=== PATIENT | male | born 1975 | race Caucasian/White ===

== ENCOUNTER 2018-01-31 21:26 | Inpatient (IN) | payer OTHER, MEDICARE ==
[~2018-01-31] VITALS: Ht 172.7 cm; Wt 59.1 kg
[~2018-01-31 21:26] MED LIST: ALBU8I INH; AZIT250T74 PO; PRED5TAB PO
[2018-01-31 21:33] VITALS: BP 118/84; PULSE 130; RESP 28; TEMP 98.5; O2SAT 90
[2018-01-31] MEDS ORDERED: SODIUM CHLORIDE 0.9% FLUSH 10 ML FLUSH IVF PRN (21:45)
[2018-01-31] MEDS ORDERED: SODIUM CHLOR 0.9% 1000 ML INJ 1,000 ML IV ONE ×2 (21:45→22:30)
--- NOTE | 2018-01-31 21:51 | PD ---
HPI Chief Complaint: Respiratory Symptoms Time Seen by Provider: 21:33 Travel History International Travel<30 days: No Contact w/Intl Traveler<30days: No Traveled to known affect area: No History of Present Illness HPI Patient is a 42-year-old male who presents the emergency room with complaints of shortness of breath. Patient reports that for the past 2 days, he has been having a nonproductive cough, reports that he has been wheezing. Patient reports that symptoms were exacerbated tonight, he decided to call ems for help. EMS reports that patient was hypoxic and tachypneic on initial evaluation , patient was given Solu-Medrol 125 mg IM as well as 3 neb treatments prior to arrival to the emergency room. His initial pulse ox was 80% on room air by EMS. Patient reports that he is a smoker, reports that he has not smoked in the past 2 days due to the shortness of breath. Patient denies any fevers or chills , denies any history of pulmonary embolism or DVT. Reports no sick contacts. PFSH Past Medical History Cerebral Palsy: Yes Diabetes: No Diminished Hearing: No Tetanus Vaccination: < 5 Years Influenza Vaccination: Yes Past Surgical History Other Surgery: Yes (BUNION SURGERY) Social History Alcohol Use: No Tobacco Use: Yes (1 ppd) Substance Use: No Allergies-Medications (Allergen,Severity, Reaction): Coded Allergies: No Known Allergies (Verified Allergy, Unknown, 01/31/18) Uncoded Allergies: NICKEL (Allergy, Intermediate, BLISTERS/HIVES, 01/04/16) Reported Meds & Prescriptions Reported Meds & Active Scripts Active No Active Prescriptions or Reported Medications Review of Systems General / Constitutional: No: Fever, Chills Eyes: No: Visual changes HENT: No: Headaches Cardiovascular: No: Chest Pain or Discomfort Respiratory: Positive: Cough, Shortness of Breath, Wheezing Gastrointestinal: No: Abdominal Pain Genitourinary: No: Dysuria Musculoskeletal: No: Pain Skin: No Rash Neurologic: No: Weakness Psychiatric: No: Depression Endocrine: No: Polydipsia Hematologic/Lymphatic: No: Easy Bruising Physical Exam Narrative GENERAL: Moderate distress SKIN: Focused skin assessment warm/dry. HEAD: Atraumatic. Normocephalic. EYES: Pupils equal and round. No scleral icterus. No injection or drainage. ENT: No nasal bleeding or discharge. Mucous membranes pink and moist. NECK: Trachea midline. No JVD. CARDIOVASCULAR: Tachycardic. No murmur appreciated. RESPIRATORY: Positive accessory muscle use. Scattered wheezing diffusely GASTROINTESTINAL: Abdomen soft, non-tender, nondistended. Hepatic and splenic margins not palpable. MUSCULOSKELETAL: No obvious deformities. No clubbing. No cyanosis. No edema. NEUROLOGICAL: Awake and alert. No obvious cranial nerve deficits. Motor grossly within normal limits. Normal speech. PSYCHIATRIC: Appropriate mood and affect; insight and judgment normal. Data Data Last Documented VS Vital Signs Date Time Temp Pulse Resp B/P (MAP) Pulse Ox O2 Delivery O2 Flow Rate FiO2 01/31/18 22:18 94 Nasal Cannula 4.00 01/31/18 21:33 98.5 130 28 118/84 (95) Orders Orders Complete Blood Count With Diff (01/31/18 21:38) Basic Metabolic Panel (Bmp) (01/31/18 21:38) B-Type Natriuretic Peptide (01/31/18 21:38) D-Dimer (01/31/18 21:38) Act Partial Throm Time (Ptt) (01/31/18 21:38) Prothrombin Time / Inr (Pt) (01/31/18 21:38) Magnesium (Mg) (01/31/18 21:38) Arterial Blood Gas (Abg) (01/31/18 21:38) Influenzae A/B Antigen (01/31/18 21:38) Iv Access Insert/Monitor (01/31/18 21:38) Electrocardiogram (01/31/18 21:38) Ecg Monitoring (01/31/18 21:38) Oximetry (01/31/18 21:38) Chest, Pa & Lat (01/31/18 21:38) Sodium Chloride 0.9% Flush (Ns Flush) (01/31/18 21:45) Albuterol-Ipratropium Neb (Duoneb Neb) (01/31/18 21:45) Sodium Chlor 0.9% 1000 Ml Inj (Ns 1000 M (01/31/18 21:45) Blood Culture (01/31/18 21:38) Lactic Acid Sepsis Protocol (01/31/18 21:40) Magnesium Sulfate 1 Gm Premix (Magnesium (01/31/18 22:00) Azithromycin Inj (Zithromax Inj) (01/31/18 22:15) Ceftriaxone Inj (Rocephin Inj) (01/31/18 22:15) Sodium Chlor 0.9% 1000 Ml Inj (Ns 1000 M (01/31/18 22:30) Sepsis Workup Initiated (01/31/18 ) Potassium Chloride (Kcl) (01/31/18 22:45) Kcl Bolus Inj (01/31/18 22:45) Labs Laboratory Tests Test 01/31/18 21:45 01/31/18 21:55 White Blood Count 18.3 TH/MM3 Red Blood Count 4.72 MIL/MM3 Hemoglobin 15.4 GM/DL Hematocrit 43.9 % Mean Corpuscular Volume 92.9 FL Mean Corpuscular Hemoglobin 32.7 PG Mean Corpuscular Hemoglobin Concent 35.2 % Red Cell Distribution Width 13.1 % Platelet Count 269 TH/MM3 Mean Platelet Volume 8.9 FL Neutrophils (%) (Auto) 70.7 % Lymphocytes (%) (Auto) 18.0 % Monocytes (%) (Auto) 6.7 % Eosinophils (%) (Auto) 4.1 % Basophils (%) (Auto) 0.5 % Neutrophils # (Auto) 13.0 TH/MM3 Lymphocytes # (Auto) 3.3 TH/MM3 Monocytes # (Auto) 1.2 TH/MM3 Eosinophils # (Auto) 0.7 TH/MM3 Basophils # (Auto) 0.1 TH/MM3 CBC Comment DIFF FINAL Differential Comment Blood Urea Nitrogen 8 MG/DL Creatinine 1.00 MG/DL Random Glucose 134 MG/DL Calcium Level 8.7 MG/DL Magnesium Level 2.1 MG/DL Sodium Level 137 MEQ/L Potassium Level 2.7 MEQ/L Chloride Level 102 MEQ/L Carbon Dioxide Level 27.5 MEQ/L Anion Gap 8 MEQ/L Estimat Glomerular Filtration Rate 82 ML/MIN Lactic Acid Level 2.2 mmol/L B-Type Natriuretic Peptide 18 PG/ML Blood Gas Puncture Site RT BRACHIAL Blood Gas Patient Temperature 98.6 Blood Gas HCO3 24 mmol/L Blood Gas Base Excess 0.8 mmol/L Blood Gas Oxygen Saturation 87 % Arterial Blood pH 7.46 Arterial Blood Partial Pressure CO2 34 mmHG Arterial Blood Partial Pressure O2 55 mmHG Arterial Blood Oxygen Content 19.3 Vol % Arterial Blood Carboxyhemoglobin 1.9 % Arterial Blood Methemoglobin 1.0 % Blood Gas Hemoglobin 15.8 G/DL Blood Gas Inspired Oxygen 21 % MDM Medical Decision Making Medical Screen Exam Complete: Yes Emergency Medical Condition: Yes Medical Record Reviewed: Yes Interpretation(s) EKG at 2216: Sinus tach at 116bpm, qt/qtc: 327/396, Vital Signs Date Time Temp Pulse Resp B/P (MAP) Pulse Ox O2 Delivery O2 Flow Rate FiO2 01/31/18 21:36 Nasal Cannula 4.00 01/31/18 21:33 98.5 130 28 118/84 (95) 90 Differential Diagnosis Pneumonia, COPD exacerbation, influenza, pulmonary embolism, pneumothorax Narrative Course 42-year-old male who presents the emergency room complaints of shortness of breath, cough and wheezing for the past 2 days. Patient arrives to the emergency room tachycardic with heart rate in the 130s, tachypneic with a respiratory rate of 28, hypoxic with a pulse ox of 90% on 4 L nasal cannula. Patient does meet SIRS criteria, blood cultures, lactic acid as well as IV fluids were ordered. During the course of the patients emergency department visit, the patients history, examination, and differential diagnosis were reviewed with the patient. The patient was placed on a monitoring coordinator with oximetry and frequent blood pressure monitoring. The patient had an IV access obtained and blood work sent for analysis. The patient was initially provided IM Solu-Medrol by EMS, 3 neb treatments by EMS. Patient will receive 3 DuoNeb's in the emergency room as well as IV magnesium. The patients laboratory studies were reviewed and remarkable for CBC & BMP Diagram 01/31/18 21:45 Calcium Level 8.7, Magnesium Level 2.1 lactate 2.2 Radiology studies were reviewed and remarkable for Last Impressions Chest X-Ray 01/31/182137 Signed Impressions: Service Date/Time: Wednesday, January 31, 2018 21:46 - CONCLUSION: 1. Bibasilar infiltrates. Treatment and followup to resolution. Des Roberts MD Patient with bilateral infiltrates, he has a lactic acid of 2.2, a white blood cell count of 18.3, he is hypoxic with a pulse ox of 80% on room air, ABG shows that his pO2 55. patient will require admission to the hospital for iv antibiotics. He has received a dose of IV Rocephin as well as IV azithromycin. Patient is agreeable to admission to hospital. Critical Care Narrative Aggregate critical care time was 30 minutes. Time to perform other separately billable procedures was not included in the critical care time. My time did not include minutes spent treating any other patients simultaneously or on activities that did not directly contribute to the patient's treatment. The services I provided to this patient were to treat and/or prevent clinically significant deterioration that could result in: , decompensation, deterioration I provided critical care services requiring my management, as noted below: Chart data review, documentation time, medication orders and management, vital sign assessments/reviewing monitor data, ordering and reviewing lab tests, ordering and interpreting/reviewing x-rays and diagnostic studies, care of the patient and discussion of the patient with the admitting physicians. Sepsis Criteria SIRS Criteria (2 or more): Heart rate over 90, RR > 20 or PaCO2 < 32 Diagnosis Primary Impression: COPD exacerbation Additional Impressions: Hypoxia Hypokalemia Admitting Information Admitting Physician Requests: Admit Scripts No Active Prescriptions or Reported Jaylyn Carter DO Jan 31, 2018 21:51
[2018-01-31 21:53] VITALS: O2SAT 95
[2018-01-31 22:01] LABS: BASOPHIL # 0.1 TH/MM3 (0-0.2); BASOPHIL % 0.5 % (0.0-2.0); EOSINOPHIL # 0.7 TH/MM3 (0-0.4); EOSINOPHIL % 4.1 % (0.0-4.0); HEMATOCRIT 43.9 % (39.0-51.0); HEMOGLOBIN 15.4 GM/DL (13.0-17.0); LYMPHOCYTE # 3.3 TH/MM3 (1.0-4.8); MEAN CELL VOLUME 92.9 FL (80.0-100.0); MEAN CORPUSCULAR HEMOGLOBIN 32.7 PG (27.0-34.0); MEAN CORPUSCULAR HGB CONC 35.2 % (32.0-36.0); MEAN PLATELET VOLUME 8.9 FL (7.0-11.0); MONO % 6.7 % (0.0-8.0); MONOCYTE # 1.2 TH/MM3 (0-0.9); NEUT % 70.7 % (16.0-70.0); PLATELET COUNT 269 TH/MM3 (150-450); RED BLOOD COUNT 4.72 MIL/MM3 (4.50-5.90); RED CELL DISTRIBUTION WIDTH 13.1 % (11.6-17.2); WHITE BLOOD COUNT 18.3 TH/MM3 (4.0-11.0)
[2018-01-31] MEDS: MAGNESIUM SULFATE 1 GM PREMIX 100 ML IV SCH ×2 (22:02→23:13)
--- NOTE | 2018-01-31 22:09 | RADRPT ---
EXAM DATE/TIME: 01/31/2018 21:46 [facility] COMPARISON: CHEST PA & LAT, January 04, 2016, 10:42. INDICATIONS : Short of breath. MEDICAL HISTORY : Cerebral palsy SURGICAL HISTORY : None. ENCOUNTER: Initial ACUITY: 2 days PAIN SCORE: 0/10 LOCATION: Bilateral chest FINDINGS: PA and lateral views of the chest demonstrate bibasilar patchy densities. Right upper lobe nodule par tially calcified. Heart normal size. Osseous structures are intact. CONCLUSION: 1. Bibasilar infiltrates. Treatment and followup to resolution. Des Roberts MD on January 31, 2018 at 22:04 Board Certified Radiologist. This report was verified electronically.
[2018-01-31] MEDS ORDERED: cefTRIAXone INJ 1,000 MG in SODIUM CHLORIDE 0.9% INJ 100 ML IV ONE (22:15)
[2018-01-31] MEDS ORDERED: AZITHROMYCIN INJ 500 MG in SODIUM CHLOR 0.9% 250 ML INJ 250 ML IV ONE (22:15)
[2018-01-31] MEDS: RESP: ALBUTEROL 2.5 MG/IPRATROPIUM 0.5 MG NEB (SCH) INH ×2 (22:17→22:26)
[2018-01-31 22:18] VITALS: O2SAT 94
[2018-01-31 22:27] LABS: LACTIC ACID SEPSIS PROTOCOL 2.2 mmol/L (0.4-2.0)
[2018-01-31 22:30] LABS: BICARBONATE 27.5 MEQ/L (21.0-32.0); CALCIUM 8.7 MG/DL (8.5-10.1); MAGNESIUM 2.1 MG/DL (1.5-2.5)
[2018-01-31 22:31] LABS: INTERNATIONAL NORMALIZED RATIO 1.1 RATIO
[2018-01-31 22:40] LABS: D-DIMER 1.12 MG/L FEU (0.00-0.50)
[2018-01-31] MEDS ORDERED: POTASSIUM CHLORIDE 10 MEQ CONTROLLED RELEASE TAB PO ONE (22:45)
[2018-01-31] MEDS ORDERED: LACTULOSE SYRUP 20 GM/30 ML CUP PO PRN (23:00)
[2018-01-31] MEDS ORDERED: ACETAMINOPHEN/HYDROcodone 325 MG/5 MG TAB PO PRN (23:00)
[2018-01-31] MEDS ORDERED: MAGNESIUM HYDROXIDE SUSP 30 ML CUP PO PRN (23:00)
[2018-01-31] MEDS ORDERED: BISACODYL 10 MG SUPP RECTAL PRN (23:00)
[2018-01-31] MEDS ORDERED: ACETAMINOPHEN/HYDROcodone 325 MG/10 MG TAB PO PRN (23:00)
[2018-01-31] MEDS ORDERED: ONDANSETRON HCL 4 MG/2 ML VIAL IVP PRN (23:00)
[2018-01-31] MEDS ORDERED: RESP: ALBUTEROL 2.5 MG/IPRATROPIUM 0.5 MG NEB (PRN) NEB (23:00)
[2018-01-31] MEDS ORDERED: ACETAMINOPHEN 325 MG TAB PO PRN (23:00)
[2018-01-31] MEDS ORDERED: SODIUM CHLORIDE 0.9% FLUSH 10 ML FLUSH IV FLUSH PRN (23:00)
[2018-01-31] MEDS ORDERED: SENNOSIDES 8.6 MG TAB PO PRN (23:00)
[2018-01-31] MEDS: ENOXAPARIN SODIUM 40 MG/0.4 ML SYRINGE SQ SCH (23:11)
[2018-01-31 23:24] VITALS: BP 134/72; PULSE 120; RESP 23; O2SAT 95
--- NOTE | 2018-01-31 23:55 | EKG ---
Date Performed: 01/31/2018 Time Performed: 22:16:26 PTAGE: 42 years EKG: SINUS TACHYCARDIA POSSIBLE LEFT ATRIAL ENLARGEMENT PATTERN CONSISTENT WITH PULMONARY DISEAS E POSSIBLE RIGHT VENTRICULAR HYPERTROPHY ABNORMAL ECG PREVIOUS TRACING : 01/04/2016 10.30 Since the previous tracing, no significant change noted DOCTOR: Jefe Aparicio Interpretating Date/Time 01/31/2018 23:54:06
[2018-02-01] VITALS (20 sets, daily range): BP systolic 86–124; BP diastolic 48–76; PULSE 84–132; RESP 19–30; TEMP 97.8–98.6; O2SAT 93–98
[2018-02-01] MEDS ORDERED: IOHEXOL 350 MG/ML 10 ML VIAL (for RAD DIAG) IVCONTRAST ONE
--- NOTE | 2018-02-01 00:30 | RADRPT ---
EXAM DATE/TIME: 01/31/2018 23:49 [facility] COMPARISON: No previous studies available for comparison. INDICATIONS : Short of breath. Cough. IV CONTRAST: 75 cc Omnipaque 350 (iohexol) IV RADIATION DOSE: 8.75 CTDIvol (mGy) MEDICAL HISTORY : Cerebral palsy. SURGICAL HISTORY : None. ENCOUNTER: Initial ACUITY: 2 days PAIN SCALE: 0/10 LOCATION: chest TECHNIQUE: Volumetric scanning of the chest was performed using a pulmonary embolism protocol MIP images were re constructed. Using automated exposure control and adjustment of the mA and/or kV according to patien t size, radiation dose was kept as low as reasonably achievable to obtain optimal diagnostic quality images. DICOM format image data is available electronically for review and comparison. Follow-up recommendations for detected pulmonary nodules are based at a minimum on nodule size and pa tient risk factors according to Fleischner Society Guidelines. FINDINGS: PULMONARY ARTERIES: No filling defects are seen in the pulmonary arteries through the segmental level. LUNGS: There is scattered areas of increased ground substance located in the medial right upper lung, lingul a, and medial basal segment left lower lung. No focal areas of consolidation. Some mild nodularity of the bronchopulmonary markings of the posterior segment right upper lobe. PLEURAE: There is no pleural thickening or pleural effusion. MEDIASTINUM: There is good visualization of the great vessels of the middle mediastinum. No evidence of mediastin al or hilar adenopathy/mass. CONCLUSION: 1. The study is negative for pulmonary embolism. 2. Scattered areas of increased ground substance of the pulmonary parenchyma and a few small areas of nodular thickening of the bronchopulmonary markings in the posterior segment of the right upper lobe suggesting infectious or inflammatory process. No focal areas of consolidation and no focal infiltr ates seen. Bj Oliva MD on February 01, 2018 at 0:11 Board Certified Radiologist. This report was verified electronically.
[2018-02-01] MEDS: POTASSIUM CHLOR 20 MEQ PREMIX 100 ML IV SCH ×3 (00:45→03:49)
[2018-02-01] MEDS: methylPREDNISolone SOD SUCC 40 MG/1 ML VIAL IV PUSH SCH ×5 (03:05→22:48)
[2018-02-01 06:03] LABS: AUTOMATED NEUTROPHIL # 17.7 TH/MM3 (1.8-7.7); BASOPHIL # 0.1 TH/MM3 (0-0.2); BASOPHIL % 0.3 % (0.0-2.0); EOSINOPHIL % 0.1 % (0.0-4.0); HEMATOCRIT 39.4 % (39.0-51.0); HEMOGLOBIN 13.3 GM/DL (13.0-17.0); LYMPH % 3.2 % (9.0-44.0); LYMPHOCYTE # 0.6 TH/MM3 (1.0-4.8); MEAN CELL VOLUME 94.1 FL (80.0-100.0); MEAN CORPUSCULAR HEMOGLOBIN 31.8 PG (27.0-34.0); MEAN CORPUSCULAR HGB CONC 33.8 % (32.0-36.0); MEAN PLATELET VOLUME 8.6 FL (7.0-11.0); MONO % 1.6 % (0.0-8.0); MONOCYTE # 0.3 TH/MM3 (0-0.9); NEUT % 94.8 % (16.0-70.0); PLATELET COUNT 222 TH/MM3 (150-450); RED BLOOD COUNT 4.19 MIL/MM3 (4.50-5.90); RED CELL DISTRIBUTION WIDTH 12.7 % (11.6-17.2); WHITE BLOOD COUNT 18.7 TH/MM3 (4.0-11.0)
[2018-02-01 06:13] LABS: CHLORIDE 109 MEQ/L (98-107); SODIUM (NA) 140 MEQ/L (136-145)
[2018-02-01 06:17] LABS: ALBUMIN 2.9 GM/DL (3.4-5.0); BICARBONATE 22.9 MEQ/L (21.0-32.0); BLOOD UREA NITROGEN 8 MG/DL (7-18); GLUCOSE,RANDOM 194 MG/DL (74-106)
[2018-02-01 06:20] LABS: ALT (GPT) 15 U/L (12-78); AST (GOT) 18 U/L (15-37); GLOMERULAR FILTRATION RATE 66 ML/MIN (>89)
[2018-02-01 06:21] LABS: TOTAL BILIRUBIN ADULT 0.4 MG/DL (0.2-1.0)
[2018-02-01 06:22] LABS: TOTAL PROTEIN 6.4 GM/DL (6.4-8.2)
[2018-02-01 06:23] LABS: ALKALINE PHOSPHATASE 77 U/L (45-117)
[2018-02-01] MEDS: RESP: ALBUTEROL 2.5 MG/IPRATROPIUM 0.5 MG NEB (SCH) NEB ×4 (07:20→19:20)
[2018-02-01] MEDS: DOCUSATE SODIUM 50 MG/SENNA 8.6 MG TAB PO SCH ×2 (08:45→20:43)
[2018-02-01] MEDS: SODIUM CHLORIDE 0.9% FLUSH 10 ML FLUSH IV FLUSH SCH ×2 (08:45→20:44)
[2018-02-01] MEDS: guaiFENesin E.R. 600 MG TAB PO SCH ×2 (08:45→20:43)
[2018-02-01] MEDS ORDERED: BUDESONIDE-FORMOTEROL 160/4.5 MCG INHALER INH SCH (09:00)
--- NOTE | 2018-02-01 09:59 | HHI.HP ---
[facility] Primary Care Physician Admission Diagnosis Hypoxia, pneumonia, copd exacerbation Diagnoses: Chief Complaint: Shortness of breath Travel History International Travel<30 Days: No Contact w/Intl Traveler <30 Da: No Traveled to Known Affected Are: No History of Present Illness 42-year-old white male being admitted for acute hypoxic respiratory failure Patient was in his usual state of health until about 3 days ago when he began experiencing intermittent bouts of intensive coughing that was wet but not productive. Reports that he would wake up with these episodes of intense coughing which would then ease throughout the rest of the day. However since last night this episode was severe enough to the point where he got very lightheaded and almost passed out with his coughing spell and he called 911. He does endorse some posttussive unremarkable emesis and posttussive chest pain as well as rhinorrhea this week. Denies any cyanosis. Patient did say he took some amoxicillin given to him by his father to no avail, also took some Benadryl as well to try to help control his symptoms. on the way to the emergency department per the ER records patient was noted to have sats in the 80s via EMS. CT angiogram was performed which I independently reviewed which shows no pulmonary embolus but it does show patchy infiltrates on the right lung field. Patient was also noted to be hypokalemic in the ER around 2.7. Was given IV fluids steroids and antibiotics and supplemental oxygen. Review of Systems Except as stated in HPI: all other systems reviewed are Neg Past Family Social History Past Medical History Cerebral palsy Hospitalization for pneumonia past Allergies: Coded Allergies: No Known Allergies (Verified Allergy, Unknown, 01/31/18) Uncoded Allergies: NICKEL (Allergy, Intermediate, BLISTERS/HIVES, 01/04/16) Family History Heart attacks in father and grandfather Social History Used to be a heavy drinker, says he quit in 2001, does actively smoke since teenage years Physical Exam Vital Signs Vital Signs Date Time Temp Pulse Resp B/P (MAP) Pulse Ox O2 Delivery O2 Flow Rate FiO2 02/01/18 07:25 98 Nasal Cannula 4.00 4/29/18 04:00 92 02/01/18 04:00 97.8 92 22 108/68 (81) 98 02/01/18 02:00 100 02/01/18 01:30 97.8 100 24 124/75 (91) 97 02/01/18 00:45 112 20 102/69 (80) 93 Nasal Cannula 4.00 01/31/18 23:53 01/31/18 23:24 120 23 134/72 (92) 95 Nasal Cannula 4.00 01/31/18 22:18 94 Nasal Cannula 4.00 01/31/18 21:53 95 Nasal Cannula 4.00 01/31/18 21:36 Nasal Cannula 4.00 01/31/18 21:33 98.5 130 28 118/84 (95) 90 Physical Exam VS: afebrile GENERAL: Middle-aged male who appears older than his stated age, in no acute distress SKIN: Warm and dry. EYES: No scleral icterus. No injection or drainage. ENT: No nasal bleeding or discharge. Mucous membranes pink and moist. Poor dentition CARDIOVASCULAR: Regular rate and rhythm. no murmurs RESPIRATORY: No accessory muscle use. Diffuse rhonchi and wheezing all throughout lung gamez GASTROINTESTINAL: Abdomen soft, non-tender, nondistended. Extremities: No clubbing, cyanosis, or edema. No obvious deformities. MUSCULOSKELETAL: adequate muscle bulk and tone for age and habitus NEUROLOGICAL: Awake and alert. No obvious cranial nerve deficits. No facial droop nor slurred speech noted. PSYCHIATRIC: Appropriate mood and affect; insight and judgment normal. Laboratory Laboratory Tests Test 01/31/18 21:45 01/31/18 21:55 02/01/18 05:32 02/01/18 07:41 White Blood Count 18.3 18.7 Red Blood Count 4.72 4.19 Hemoglobin 15.4 13.3 Hematocrit 43.9 39.4 Mean Corpuscular Volume 92.9 94.1 Mean Corpuscular Hemoglobin 32.7 31.8 Mean Corpuscular Hemoglobin Concent 35.2 33.8 Red Cell Distribution Width 13.1 12.7 Platelet Count 269 222 Mean Platelet Volume 8.9 8.6 Neutrophils (%) (Auto) 70.7 94.8 Lymphocytes (%) (Auto) 18.0 3.2 Monocytes (%) (Auto) 6.7 1.6 Eosinophils (%) (Auto) 4.1 0.1 Basophils (%) (Auto) 0.5 0.3 Neutrophils # (Auto) 13.0 17.7 Lymphocytes # (Auto) 3.3 0.6 Monocytes # (Auto) 1.2 0.3 Eosinophils # (Auto) 0.7 0.0 Basophils # (Auto) 0.1 0.1 CBC Comment DIFF FINAL DIFF FINAL Differential Comment Prothrombin Time 11.0 Prothromb Time International Ratio 1.1 Activated Partial Thromboplast Time 28.2 D-Dimer Quantitative (PE/DVT) 1.12 Blood Urea Nitrogen 8 8 Creatinine 1.00 1.20 Random Glucose 134 194 Calcium Level 8.7 8.0 Magnesium Level 2.1 Sodium Level 137 140 Potassium Level 2.7 3.5 Chloride Level 102 109 Carbon Dioxide Level 27.5 22.9 Anion Gap 8 8 Estimat Glomerular Filtration Rate 82 66 Lactic Acid Level 2.2 3.0 B-Type Natriuretic Peptide 18 Blood Gas Puncture Site RT BRACHIAL Blood Gas Patient Temperature 98.6 Blood Gas HCO3 24 Blood Gas Base Excess 0.8 Blood Gas Oxygen Saturation 87 Arterial Blood pH 7.46 Arterial Blood Partial Pressure CO2 34 Arterial Blood Partial Pressure O2 55 Arterial Blood Oxygen Content 19.3 Arterial Blood Carboxyhemoglobin 1.9 Arterial Blood Methemoglobin 1.0 Blood Gas Hemoglobin 15.8 Blood Gas Inspired Oxygen 21 Total Protein 6.4 Albumin 2.9 Alkaline Phosphatase 77 Aspartate Amino Transf (AST/SGOT) 18 Alanine Aminotransferase (ALT/SGPT) 15 Total Bilirubin 0.4 Date/Time Source Procedure Growth Status 01/31/18 21:50 Blood Peripheral Aerobic Blood Culture Pending Received 01/31/18 21:50 Blood Peripheral Anaerobic Blood Culture Pending Received 01/31/18 21:50 Nasal Aspirate Influenza Types A,B Antigen (ISABELLA) - Final NEGATIVE FOR FLU A AND B ANTIGEN.... Complete Result Diagram: 02/01/18 0532 02/01/18 [address] Angiography 01/31/18 9024 Signed Impressions: Service Date/Time: Wednesday, January 31, 2018 23:49 - CONCLUSION: 1. The study is negative for pulmonary embolism. 2. Scattered areas of increased ground substance of the pulmonary parenchyma and a few small areas of nodular thickening of the bronchopulmonary markings in the posterior segment of the right upper lobe suggesting infectious or inflammatory process. No focal areas of consolidation and no focal infiltrates seen. Bj Oliva MD Chest X-Ray 01/31/182137 Signed Impressions: Service Date/Time: Wednesday, January 31, 2018 21:46 - CONCLUSION: 1. Bibasilar infiltrates. Treatment and followup to resolution. MD Gely Shaffer VTE Risk Assessment Caprini VTE Risk Assessment: Mod/High Risk (score >= 2) Caprini Risk Assessment Model Point Value = 1 Point Value = 2 Point Value = 3 Point Value = 5 Age 41-60 Minor surgery BMI > 25 kg/m2 Swollen legs Varicose veins or History of unexplained or recurrent spontaneous Oral contraceptives or hormone replacement Sepsis (< 1 month) Serious lung disease, including pneumonia (< 1 month) Abnormal pulmonary function Acute myocardial infarction Congestive heart failure (< 1 month) History of inflammatory bowel disease Medical patient at bed rest Age 61-74 Arthroscopic surgery Major open surgery (> 45 min) Laparoscopic surgery (> 45 min) Malignancy Confined to bed (> 72 hours) Immobilizing plaster cast Central venous access Age >= 75 History of VTE Family history of VTE Factor V Leiden Prothrombin [id number] Lupus anticoagulant Anticardiolipin antibodies Elevated serum homocysteine Heparin-induced thrombocytopenia Other congenital or acquired thrombophilia Stroke (< 1 month) Elective arthroplasty Hip, pelvis, or leg fracture Acute spinal cord injury (< 1 month) Prophylaxis Regimen Total Risk Factor Score Risk Level Prophylaxis Regimen 0-1 Low Early ambulation 2 Moderate Order ONE of the following: *Sequential Compression Device (SCD) *Heparin 5000 units SQ BID 3-4 Higher Order ONE of the following medications: *Heparin 5000 units SQ TID *Enoxaparin/Lovenox 40 mg SQ daily (WT < 150 kg, CrCl > 30 mL/min) *Enoxaparin/Lovenox 30 mg SQ daily (WT < 150 kg, CrCl > 10-29 mL/min) *Enoxaparin/Lovenox 30 mg SQ BID (WT < 150 kg, CrCl > 30 mL/min) AND/OR *Sequential Compression Device (SCD) 5 or more Highest Order ONE of the following medications: *Heparin 5000 units SQ TID (Preferred with Epidurals) *Enoxaparin/Lovenox 40 mg SQ daily (WT < 150 kg, CrCl > 30 mL/min) *Enoxaparin/Lovenox 30 mg SQ daily (WT < 150 kg, CrCl > 10-29 mL/min) *Enoxaparin/Lovenox 30 mg SQ BID (WT < 150 kg, CrCl > 30 mL/min) AND *Sequential Compression Device (SCD) Assessment and Plan Assessment and Plan 42-year-old white male admitted for acute hypoxic respiratory failure Acute hypoxic respiratory failure -CT angios negative for PE, suggestive of infiltrates, blood gases suggestive of acute hypoxica, low normal CO2 -Azithromycin and Rocephin -Solu-Medrol and duo nebs -Supplemental O2, wean as tolerated lactic acidosis - 2/2 hypoxia, IVFs, Lovenox Physician Certification 2 Midnight Certification Type: Admission for Inpatient Services Order for Inpatient Services The services are ordered in accordance with Medicare regulations or non- Medicare payer requirements, as applicable. In the case of services not specified as inpatient-only, they are appropriately provided as inpatient services in accordance with the 2-midnight benchmark. Estimated LOS (days): 2 2 days is the estimated time the patient will need to remain in the hospital, assuming treatment plan goals are met and no additional complications. Post-Hospital Plan: Home Adrian Lagunas MD Feb 01, 2018 09:59
[2018-02-01] MEDS ORDERED: SODIUM CHLOR 0.9% 1000 ML INJ 1,000 ML IV ONE (10:00)
[2018-02-01 13:24] LABS: HEMOGLOBIN A1C 4.7 % (4.3-6.0)
[2018-02-01] MEDS: PROMETHAZINE/CODEINE 6.25 MG/10 MG/5 ML CUP PO PRN ×3 (16:33→22:48)
[2018-02-01] MEDS: ENOXAPARIN SODIUM 40 MG/0.4 ML SYRINGE SQ SCH (21:51)
[2018-02-01] MEDS ORDERED: cefTRIAXone INJ 1,000 MG in SODIUM CHLORIDE 0.9% INJ 100 ML IV SCH (22:00)
[2018-02-01] MEDS ORDERED: AZITHROMYCIN INJ 500 MG in SODIUM CHLOR 0.9% 250 ML INJ 250 ML IV SCH (23:00)
[2018-02-02] VITALS (11 sets, daily range): BP systolic 91–128; BP diastolic 50–74; PULSE 84–109; RESP 16–35; TEMP 96.5–99; O2SAT 92–98
[2018-02-02] MEDS: PROMETHAZINE/CODEINE 6.25 MG/10 MG/5 ML CUP PO PRN ×3 (04:29→16:14)
[2018-02-02] MEDS: methylPREDNISolone SOD SUCC 40 MG/1 ML VIAL IV PUSH SCH ×3 (04:29→17:31)
[2018-02-02] MEDS: RESP: ALBUTEROL 2.5 MG/IPRATROPIUM 0.5 MG NEB (SCH) NEB ×3 (07:21→15:47)
[2018-02-02] MEDS: DOCUSATE SODIUM 50 MG/SENNA 8.6 MG TAB PO SCH (08:25)
[2018-02-02] MEDS: SODIUM CHLORIDE 0.9% FLUSH 10 ML FLUSH IV FLUSH SCH (08:25)
[2018-02-02] MEDS: guaiFENesin E.R. 600 MG TAB PO SCH (08:25)
--- NOTE | 2018-02-02 14:19 | HHI.PR ---
Subjective Remarks Nursing denies any deterioration since last night. Patient states he feels much better than yesterday. Afebrile. Objective Vital Signs Date Time Temp Pulse Resp B/P (MAP) Pulse Ox O2 Delivery O2 Flow Rate FiO2 02/02/18 11:51 96.5 109 22 114/67 (83) 95 02/02/18 11:29 92 21 02/02/18 11:12 92 02/02/18 09:50 90 02/02/18 09:00 86 23 113/74 (87) 96 02/02/18 08:00 97.7 105 21 100/64 (76) 93 02/02/18 08:00 90 02/02/18 07:22 98 Nasal Cannula 2.00 02/02/18 04:30 97.8 88 28 99/63 (75) 96 02/02/18 04:00 84 02/02/18 00:00 102 02/02/18 00:00 99.0 102 35 91/50 (64) 97 02/01/18 20:00 132 02/01/18 20:00 98.6 132 30 117/67 (84) 93 02/01/18 19:20 93 Nasal Cannula 2.00 02/01/18 18:55 100 29 102/48 (66) 96 02/01/18 18:54 102 28 86/49 (61) 97 02/01/18 18:00 104 27 109/65 (80) 02/01/18 16:00 100 02/01/18 15:00 90 26 114/68 (83) 95 I/O 02/01/18 02/01/18 02/01/18 02/02/18 02/02/18 02/02/18 07:00 15:00 23:00 07:00 15:00 23:00 Intake Total 3070 ml 0 ml 350 ml Output Total 1700 ml 1025 ml Balance 1370 ml 0 ml 350 ml -1025 ml Intake Oral 420 ml 0 ml IV Total 2650 ml 350 ml Output Urine Total 1700 ml 1025 ml # Bowel Movements 0 Result Diagram: 02/01/18 0532 02/01/18 0532 Objective Remarks Clear lung sounds bilaterally, unlabored breathing, no acute distress, no cyanosis A/P Assessment and Plan Hypoxia -Resolved Pneumonia -Azithromycin and Rocephin -Medrol Dosepak Patient has been maximal benefit from hospitalization and is clinically stable for discharge. Blood cultures are negative 2 days. Adrian Lagunas MD Feb 02, 2018 14:19
[2018-02-02] MEDS ORDERED: guaiFENesin ER PO (18:14)
[2018-02-02] MEDS ORDERED: ZITH500T PO (18:14)
[2018-02-02] MEDS ORDERED: MEDR4PAK PO (18:14)
[2018-02-02] MEDS ORDERED: CEFU1TAB18 PO (18:14)
[2018-02-02] MEDS ORDERED: IPRAAER INH (18:14)
[2018-02-02] MEDS ORDERED: Promethazine/Codeine Liq PO (18:14)
[2018-02-02] MEDS ORDERED: IPRASOL INH (18:14)
--- NOTE | 2018-02-02 18:15 | HHI.DCPOC ---
Discharge Care Plan Diagnosis: (1) COPD exacerbation (2) Hypoxia Goals to Promote Your Health * To prevent worsening of your condition and complications * To maintain your health at the optimal level Directions to Meet Your Goals Take your medications as prescribed Follow your dietary instruction Follow activity as directed Keep your appointments as scheduled Take your immunizations and boosters as scheduled If your symptoms worsen call your PCP, if no PCP go to Urgent Care Center or Emergency Room Smoking is Dangerous to Your Health. Avoid second hand smoke Call the 24-hour hour crisis hotline for domestic abuse at [place] Feb 02, 2018 18:15
== END 2018-02-02 19:02 | disposition home or self-care (01) | DRG 190 ==
LOC: PHED 21:26 → PHEDA 22:54 → PHICU 02-01 01:00 → PH3B 02-02 09:20
PROVIDERS: ADMIT Hospitalist; ATTEND Hospitalist
DX: J44.1 Chronic obstructive pulmonary disease with (acute) exacerbation (principal); J96.01 Acute respiratory failure with hypoxia; J18.9 Pneumonia, unspecified organism; E87.2 Acidosis; J44.0 Chronic obstructive pulmonary disease with (acute) lower respiratory infection; E87.6 Hypokalemia; G80.9 Cerebral palsy, unspecified; F17.210 Nicotine dependence, cigarettes, uncomplicated; Z91.048 Other nonmedicinal substance allergy status
CPT/HCPCS: 36600; 71046; 71275; 80048; 80053; 82805; 83036; 83605; 83735; 83880; 85025; 85379; 85610; 85730; 87040; 87804; 93005; 94640; 94664; 96365; 96368; J0456; J0696; J1650; J2920; J3475; J3480; J7030; J7050; Q9967